=== PATIENT | female | born 1975 | race Caucasian/White ===

== ENCOUNTER 2023-12-29 10:39 | Outpatient (AMB) | payer BC, SELFPAY ==
--- NOTE | 2023-12-29 10:51 | MHC.PC.OV ---
Vital Signs 12/29/23 11:06 12/29/23 11:13 Height 5 ft 5.2 in Weight 160 lb 4 oz BMI 26.5 BP 144/90 H 148/84 H Blood Pressure Location Rt brachial Rt brachial Position Sitting Sitting Respiration 14 Pulse 67 Pulse Source Pulse Oximeter Pulse Oximetry (%) 97 Oxygen Delivery Method Room Air Intake Visit Reasons: Est. Care HTN Intake Note: New patient visit. 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 Required: No Allergies bioxin Allergy (Unknown, Uncoded 12/29/23 11:01) hives Medication List - Last Reconciled 12/29/23 by Maite Noriega MD albuterol sulfate 90 mcg/actuation (Ventolin HFA) 2 puffs inhalation Q6H PRN albuterol sulfate 2.5 mg inhalation Q6H amlodipine 10 mg PO DAILY atenolol 25 mg PO DAILY budesonide-formoterol 80-4.5 mcg/actuation (Symbicort) 2 puffs inhalation BID epinephrine (EpiPen) 0.3 mg IM Q4H PRN fluticasone propionate 50 mcg/actuation (Children's Flonase Allergy Relief) 1 spray intranasal BID ibuprofen 200 mg PO Q6H PRN linaclotide (Linzess) 145 mcg PO DAILY 90 days lisinopril 40 mg PO DAILY 90 days tirzepatide (Mounjaro) 10 mg subcut QWEEK zolpidem (Ambien) 10 mg PO BEDTIME 28 days Tobacco use date assessed: 12/29/23 Dental Screening Dental Screen Date: 12/29/23 Did you have a dental visit in the last 12 months?: Yes Did you have a dental problem in the last 6 months where you did not have access to dental care?: No Was dental information given to patient?: Patient has dentist HPI HPI Comments History of Present Illness Details The patient is a 48 year old female with a past medical history of hypertension, asthma, prediabetes, DJD, IBS, chronic insomnia presenting for follow up She has been having issues with recurrent ear infections for the past year. She recently was treated with a 7 day course of oral antibiotics from urgent care. Was feeling much better toward the end of the antibiotic course though symptoms did not completely cease now bilateral ear pain is recurring. Does endorse seasonal allergies. Only taking flonase at present. Obesity: doing well on mounjaro. Takes linzess along with medication-has h/o IBS. CV: On amlodipine, lisinopril, atenolol. 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 She has not tolerated diuretic s in the past Asthma: Stable Chronic insomnia: stable on zolpidem ROS see HPI PHYSICAL EXAM: GENERAL: Alert and oriented x 3. NAD EYES: EOMI. Anicteric. HENT: Moist mucous membranes. No scleral icterus. No cervical lymphadenopathy. Left ear with clear, scant middle ear effusion, right ear with moderate clear middle ear effusion and injection, mild bulging of the right TM LUNGS: Clear to auscultation bilaterally. CARDIOVASCULAR: Regular rate and rhythm. No murmur. No JVD. ABDOMEN: Soft, non-tender +bs EXTREMITIES: No edema. Non-tender. SKIN: No rashes or lesions. Warm. NEUROLOGIC: No focal neurological deficits. CN II-XII grossly intact PSYCHIATRIC: Cooperative. Appropriate mood and affect [facility] [place] Medical History (Updated 12/31/23 @ 09:14 by Maite Noriega MD) Von Willebrand disease Persistent insomnia Obesity, Class I, BMI 30-34.9 Migraine with aura Kidney stone IBS (irritable bowel syndrome) HTN (hypertension) Degenerative joint disease Asthma Allergy to honey bee venom Surgical History (Updated 12/29/23 @ 11:10 by Kristy Lozada CMA) History of nephrectomy Family History (Updated 12/29/23 @ 11:21 by Kristy Lozada CMA) Mother HTN (hypertension) Father Asthma Father HTN (hypertension) Sister HTN (hypertension) Thyroid disease Other Crohn disease Social History (Updated 12/29/23 @ 11:04 by Kristy Lozada CMA) Housing: House Patient Tobacco Use Status: Never used Tobacco e-Cigarette/Vaping Use: Never Used Second Hand Smoke Exposure: No service: No Current occupational status: employed 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 1. Little interest or pleasure in doing things: not at all 2. Feeling down, depressed, or hopeless: not at all 3. Trouble falling or staying asleep, or sleeping too much: not at all 4. Feeling tired or having little energy: not at all 5. Poor appetite or overeating: not at all 6. Feeling bad about yourself - or that you are a failure or have let yourself or your family down: not at all 7. Trouble concentrating on things, such as reading the newspaper or watching television: not at all 8. Moving or speaking so slowly that other people could have noticed. Or the opposite - being so fidgety or restless that you have been moving around a lot more than usual: not at all 9. Thoughts that you would be better off or of hurting yourself in some way: not at all Total score: 0 Depression Screening Interpretation: Negative (neg) Depression Screening Done: Yes 46459 - PHQ-9 Billing: Yes Source: Developed by Drs. Parth Devine, Fani Hassan, Orlin Verma and colleagues, with an educational gerardo from [employer]. Thrive Questionnaire Date Thrive assessed: 12/29/23 I am a: Patient What is your living situation today?: I have a steady place to live Within the past 12 months, did the food you bought not last and you didn't have the money to get more?: Never true Within the past 12 months, did you worry whether your food would run out before you got money to buy more?: Never true Do you have trouble paying for medicines?: No Do you have trouble getting transportation to medical appointments?: No Do you have trouble paying your heating and electricity bill?: No Do you have trouble taking care of your child, family member or friend?: No Do you have trouble with day-to-day activities such as bathing, preparing meals, shopping, managing finances, etc.?: No Are you currently unemployed and looking for a job?: No Are you interested in more education?: No Please select the resources that you would like help with: None Currently or been in a relationship where the following occur: no concerns reported THRIVE Score: 0 AUDIT C Alcohol Use Questionnaire (AUDIT-C) 1. How often do you have a drink containing alcohol?: Never 3. How often do you have six or more drinks on one occasion?: Never Total Score: 0 SHAWN-7 AMB Questionnaire SHAWN-7 Date SHAWN - 7 assessed: 12/29/23 Feeling nervous, anxious, or on edge: 0 = Not at all Not being able to stop or control worryin = Not at all Worrying too much about different things: 0 = Not at all Trouble relaxin = Not at all Being so restless that it is hard to sit still: 0 = Not at all Becoming easily annoyed or irritable: 0 = Not at all Feeling afraid as if something awful might happen: 0 = Not at all Total SHAWN-7 score (0-4 normal; 5-9 mild; 10-14 moderate; 15-21 severe): 0 Source: Developed by Drs. Parth Devine, Fani Hassan, Orlin Verma and colleagues, with an educational gerardo from [employer]. SHAWN-7 Assessment Billing SHAWN-7 Assessment Tool: SHAWN-7 Assessment 70560 ACT Questionnaire In the past 4 weeks, how much of the time did your asthma keep you from getting as much done at work, school or at home?: None of the time During the past 4 weeks, how often have you had shortness of breath?: Not at all During the past 4 weeks, how often did your asthma symptoms wake you up at night or earlier than usual in the morning?: Not at all During the past 4 weeks, how often have you had to use your rescue inhaler or nebulizer medication?: Not at all How would you rate your asthma control during the past 4 weeks?: Well controlled Score: 24 Physical exam (Primary Care) Vital Signs: Last Vital Signs Pulse 67 12/29/23 11:06 Resp 14 12/29/23 11:06 BP 148/84 H 12/29/23 11:13 Pulse Ox 97 12/29/23 11:06 Oxygen Delivery Method Room Air 12/29/23 11:06 BMI result Body Mass Index 26.5 Tobacco/Smoking Status: Tobacco use Status Tobacco use date assessed 12/29/23 12/29/23 11:21 Patient Tobacco Use Status Never used Tobacco 12/29/23 11:21 e-Cigarette/Vaping Use Never Used 12/29/23 11:21 PHQ-9: PHQ-9 Score PHQ-9: Total score 0 12/29/23 12:20 Depression Screening Interpretation: Negative (neg) Thrive Assessment: Date of Thrive Assessment Date Thrive assessed 12/29/23 12/29/23 12:20 Currently or been in a relationship where the following occur: no concerns reported Assessment and Plan Assessment & Plan (1) IBS (irritable bowel syndrome): Code(s): K58.9 - Irritable bowel syndrome without diarrhea Qualifiers: Irritable bowel syndrome type: unspecified Qualified Code(s): K58.9 - Irritable bowel syndrome without diarrhea Plan: stable (2) Asthma: Code(s): J45.909 - Unspecified asthma, uncomplicated Qualifiers: Asthma severity: moderate Asthma persistence: persistent Asthma complication type: uncomplicated Qualified Code(s): J45.40 - Moderate persistent asthma, uncomplicated (3) HTN (hypertension): Code(s): I10 - Essential (primary) hypertension Qualifiers: Hypertension type: primary hypertension Qualified Code(s): I10 - Essential (primary) hypertension Plan: controlled (4) History of recurrent ear infection: Code(s): Z86.69 - Personal history of other diseases of the nervous system and sense organs Plan: referral to ENT extend abx. afrin, prednisone preflight Orders: Referrals Ear/Nose/Throat Referral Z86.69 - Personal history of other diseases of the nervous system and sense organs Medications: New zolpidem May pay out of pocket-patient will run short on vacation 10 mg PO BEDTIME 5 tabs 0RF doxycycline hyclate 100 mg PO BID 14 days 28 caps 0RF azelastine administer into each nostril 1 spray intranasal BID 30 mL 3RF prednisone 40 mg (2 x 20 mg) PO DAILY 2 days 4 tabs 0RF Coding Level of Care Code Est Pt Level 5 (95641) Complex EM visit Add On G2211 Diagnoses Irritable bowel syndrome, unspecified type K58.9 Irritable bowel syndrome type: unspecified Moderate persistent asthma without complication J45.40 Asthma severity: moderate Asthma persistence: persistent Asthma complication type: uncomplicated Primary hypertension I10 Hypertension type: primary hypertension History of recurrent ear infection Z86.69 Additional Codes SHAWN-7 Assessment Billing - SHAWN-7 Assessment Tool: SHAWN-7 Assessment 95237 ([id number]) Time Spent (min) 47
[2023-12-29 11:06] VITALS: BP 144/90; PULSE 67; RESP 14; O2SAT 97; BMI 26.5
[2023-12-29 11:13] VITALS: BP 148/84
== END 2023-12-29 11:58 | disposition home or self-care (01) ==
PROVIDERS: PCP Internal Medicine; Visit Provider Internal Medicine
DX: K58.9 Irritable bowel syndrome, unspecified (principal); J45.40 Moderate persistent asthma, uncomplicated; I10 Essential (primary) hypertension; Z86.69 Personal history of other diseases of the nervous system and sense organs
CPT/HCPCS: 99215

== ENCOUNTER 2024-05-02 13:21 | Outpatient (AMB) | payer OTHER, SELFPAY ==
--- NOTE | 2024-05-02 13:30 | MHC.PC.OV ---
Vital Signs 05/02/24 13:36 Height 5 ft 5.2 in Weight 159 lb BMI 26.3 BP 140/84 H Blood Pressure Location Rt brachial Position Sitting Pulse 96 Pulse Source Pulse Oximeter Temp 98.8 F Temp Source Oral Pulse Oximetry (%) 99 Oxygen Delivery Method Room Air Intake Visit Reasons: Sinus infection Intake Note: Sinus pressure, dizzy, ears clogged, headache. Symptoms ongoing. [facility] to [facility] 3 weeks ago and symptoms came back. 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 She recently was treated with a 7 day course of oral antibiotics from urgent care. Was feeling much better toward the end of the antibiotic course though symptoms did not completely cease now bilateral ear pain is recurring. Does endorse seasonal allergies. Only taking flonase at present. She has appt pending appt. She has increased ear pain and sinus pressure for the last 3 weeks worsening over the past week. Feels febrile at night. Obesity: Was doing well on mounjaro-lost weight. Insurance stopped approving. Takes linzess along with medication-has h/o IBS. CV: On amlodipine, lisinopril, atenolol. 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 She has not tolerated diuretic s in the past Asthma: Stable Chronic insomnia: stable on zolpidem ROS see HPI PHYSICAL EXAM: GENERAL: Alert and oriented x 3. NAD EYES: EOMI. Anicteric. HENT: Moist mucous membranes. No scleral icterus. No cervical lymphadenopathy. Left ear with clear, scant middle ear effusion, right ear with moderate clear middle ear effusion and injection, mild bulging of the right TM LUNGS: Clear to auscultation bilaterally. CARDIOVASCULAR: Regular rate and rhythm. No murmur. No JVD. ABDOMEN: Soft, non-tender +bs EXTREMITIES: No edema. Non-tender. SKIN: No rashes or lesions. Warm. NEUROLOGIC: No focal neurological deficits. CN II-XII grossly intact PSYCHIATRIC: Cooperative. Appropriate mood and affect [facility] Medical History (Updated 01/26/24 @ 14:25 by Maite Noriega MD) Von Willebrand disease Persistent insomnia Obesity, Class I, BMI 30-34.9 Migraine with aura Kidney stone IBS (irritable bowel syndrome) HTN (hypertension) Degenerative joint disease Asthma Allergy to honey bee venom Surgical History (Updated 12/29/23 @ 11:10 by Kristy Lozada CMA) History of nephrectomy Family History (Updated 12/29/23 @ 11:21 by Kristy Lozada CMA) Mother HTN (hypertension) Father Asthma Father HTN (hypertension) Sister HTN (hypertension) Thyroid disease Other Crohn disease Social History (Updated 12/29/23 @ 11:04 by Kristy Lozada CMA) Housing: House Patient Tobacco Use Status: Never used Tobacco e-Cigarette/Vaping Use: Never Used Second Hand Smoke Exposure: No service: No Current occupational status: employed 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 1. Little interest or pleasure in doing things: not at all 2. Feeling down, depressed, or hopeless: not at all 3. Trouble falling or staying asleep, or sleeping too much: not at all 4. Feeling tired or having little energy: not at all 5. Poor appetite or overeating: not at all 6. Feeling bad about yourself - or that you are a failure or have let yourself or your family down: not at all 7. Trouble concentrating on things, such as reading the newspaper or watching television: not at all 8. Moving or speaking so slowly that other people could have noticed. Or the opposite - being so fidgety or restless that you have been moving around a lot more than usual: not at all 9. Thoughts that you would be better off or of hurting yourself in some way: not at all Total score: 0 Source: Developed by Drs. Parth Devine, Fani Hassan, Orlin Verma and colleagues, with an educational gerardo from [employer]. Thrive Questionnaire Date Thrive assessed: 04/29/24 I am a: Patient What is your living situation today?: I have a steady place to live Within the past 12 months, did the food you bought not last and you didn't have the money to get more?: Never true Within the past 12 months, did you worry whether your food would run out before you got money to buy more?: Never true Do you have trouble paying for medicines?: No Do you have trouble getting transportation to medical appointments?: No Do you have trouble paying your heating and electricity bill?: No Do you have trouble taking care of your child, family member or friend?: No Do you have trouble with day-to-day activities such as bathing, preparing meals, shopping, managing finances, etc.?: No Are you currently unemployed and looking for a job?: No Are you interested in more education?: No Please select the resources that you would like help with: None Currently or been in a relationship where the following occur: No concerns reported THRIVE Score: 0 AUDIT C Alcohol Use Questionnaire (AUDIT-C) 1. How often do you have a drink containing alcohol?: Never 3. How often do you have six or more drinks on one occasion?: Never Total Score: 0 SHAWN-7 AMB Questionnaire SHAWN-7 Date SHAWN - 7 assessed: 12/29/23 Feeling nervous, anxious, or on edge: 0 = Not at all Not being able to stop or control worryin = Not at all Worrying too much about different things: 0 = Not at all Trouble relaxin = Not at all Being so restless that it is hard to sit still: 0 = Not at all Becoming easily annoyed or irritable: 0 = Not at all Feeling afraid as if something awful might happen: 0 = Not at all Total SHAWN-7 score (0-4 normal; 5-9 mild; 10-14 moderate; 15-21 severe): 0 Source: Developed by Drs. Parth Devine, Fani Hassan, Orlin Verma and colleagues, with an educational gerardo from [employer]. Physical exam (Primary Care) Vital Signs: Last Vital Signs Temp 98.8 F 05/02/24 13:36 Pulse 96 05/02/24 13:36 BP 140/84 H 05/02/24 13:36 Pulse Ox 99 05/02/24 13:36 Oxygen Delivery Method Room Air 05/02/24 13:36 BMI result Body Mass Index 26.3 Tobacco/Smoking Status: Tobacco use Status Tobacco use date assessed 12/29/23 05/02/24 13:35 Patient Tobacco Use Status Never used Tobacco 05/02/24 13:35 e-Cigarette/Vaping Use Never Used 05/02/24 13:35 PHQ-9: PHQ-9 Score PHQ-9: Total score 0 05/11/24 11:10 Thrive Assessment: Date of Thrive Assessment Date Thrive assessed 04/29/24 05/02/24 13:35 Currently or been in a relationship where the following occur: No concerns reported Coding Level of Care Code Est Pt Level 4 (27663) Diagnoses History of recurrent ear infection Z86.69 Primary hypertension I10 Hypertension type: primary hypertension Assessment & Plan Assessment & Plan (1) History of recurrent ear infection: Code(s): Z86.69 - Personal history of other diseases of the nervous system and sense organs Category: Medical Plan: doxycycline sent (2) HTN (hypertension): Code(s): I10 - Essential (primary) hypertension Category: Medical Qualifiers: Hypertension type: primary hypertension Qualified Code(s): I10 - Essential (primary) hypertension Plan: adequately controlled. GLP resent Medications: New semaglutide can sub alternate concentration for equivalent dose per week 1 mg (0.75 mL) subcut QWEEK 9 mL 3RF pen needle, diabetic (Pen Needle) weekly 50 ea 3RF Refilled doxycycline hyclate 100 mg PO BID 28 caps 0RF 14 days zolpidem 10 mg PO BEDTIME 60 tabs 0RF G47.00 - Insomnia, unspecified
[2024-05-02 13:36] VITALS: BP 140/84; PULSE 96; TEMP 37.1; O2SAT 99; BMI 26.3
== END 2024-05-02 13:59 | disposition home or self-care (01) ==
LOC: HO.HMCFM 13:22
PROVIDERS: PCP Internal Medicine; Visit Provider Internal Medicine
DX: Z86.69 Personal history of other diseases of the nervous system and sense organs (principal); I10 Essential (primary) hypertension

== ENCOUNTER → 2024-05-02 13:21 | Outpatient (BNVA) | payer OTHER, SELFPAY | PROVIDERS: PCP Internal Medicine; Visit Provider Internal Medicine ==

== ENCOUNTER 2024-06-24 15:04 | Outpatient (AMB) | payer OTHER, SELFPAY ==
--- NOTE | 2024-06-24 15:15 | MHC.PC.OV ---
Vital Signs 06/24/24 15:20 Height 5 ft 5.2 in Weight 158 lb 6 oz BMI 26.2 BP 138/86 Blood Pressure Location Rt brachial Position Sitting Pulse 69 Pulse Source Pulse Oximeter Pulse Oximetry (%) 99 Oxygen Delivery Method Room Air Intake Visit Reasons: PE rescheduled Intake Note: Physical [employer] Required: No Allergies bioxin Allergy (Unknown, Uncoded 06/24/24 15:18) hives Tobacco use date assessed: 12/29/23 Dental Screening Dental Screen Date: 12/29/23 HPI HPI Comments History of Present Illness Details The patient is a 48 year old female with a past medical history of hypertension, asthma, prediabetes, DJD, IBS, chronic insomnia presenting for physical exam She has been having issues with recurrent ear infections for the past year. She recently was treated with a 7 day course of oral antibiotics from urgent care. Was feeling much better toward the end of the antibiotic course though symptoms did not completely cease now bilateral ear pain is recurring. Does endorse seasonal allergies. Only taking flonase at present. She has appt pending appt. She has increased ear pain and sinus pressure for the last 3 weeks worsening over the past week. Feels febrile at night. Saw Dr Leyva but would like second opinion Obesity: Was doing well on mounjaro-lost weight. Insurance stopped approving. Takes linzess along with medication-has h/o IBS. CV: On amlodipine, lisinopril, atenolol. 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 She has not tolerated diuretic s in the past Asthma: Stable Chronic insomnia: stable on zolpidem Mammo: UTD Colon cancer screening: Cologuard ordered ROS see HPI PHYSICAL EXAM: GENERAL: Alert and oriented x 3. NAD EYES: EOMI. Anicteric. HENT: Moist mucous membranes. No scleral icterus. No cervical lymphadenopathy. LUNGS: Clear to auscultation bilaterally. CARDIOVASCULAR: Regular rate and rhythm. No murmur. No JVD. ABDOMEN: Soft, non-tender +bs EXTREMITIES: No edema. Non-tender. SKIN: No rashes or lesions. Warm. NEUROLOGIC: No focal neurological deficits. CN II-XII grossly intact PSYCHIATRIC: Cooperative. Appropriate mood and affect [facility], [facility] Medical History (Updated 06/30/24 @ 15:37 by Maite Noriega MD) Von Willebrand disease Persistent insomnia Obesity, Class I, BMI 30-34.9 Migraine with aura Kidney stone IBS (irritable bowel syndrome) HTN (hypertension) Degenerative joint disease Asthma Allergy to honey bee venom Surgical History (Updated 12/29/23 @ 11:10 by Kristy Lozada CMA) History of nephrectomy Family History (Updated 12/29/23 @ 11:21 by Kristy Lozada CMA) Mother HTN (hypertension) Father Asthma Father HTN (hypertension) Sister HTN (hypertension) Thyroid disease Other Crohn disease Social History (Updated 12/29/23 @ 11:04 by Kristy Lozada CMA) Housing: House Patient Tobacco Use Status: Never used Tobacco e-Cigarette/Vaping Use: Never Used Second Hand Smoke Exposure: No service: No Current occupational status: employed 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 occupational exposures/hazards: 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 kids) Cognitive needs: No Hearing needs: No Vision needs: Yes (glasses) Questionnaire Thrive Questionnaire Date Thrive assessed: 04/29/24 I am a: Patient What is your living situation today?: I have a steady place to live Within the past 12 months, did the food you bought not last and you didn't have the money to get more?: Never true Within the past 12 months, did you worry whether your food would run out before you got money to buy more?: Never true Do you have trouble paying for medicines?: No Do you have trouble getting transportation to medical appointments?: No Do you have trouble paying your heating and electricity bill?: No Do you have trouble taking care of your child, family member or friend?: No Do you have trouble with day-to-day activities such as bathing, preparing meals, shopping, managing finances, etc.?: No Are you currently unemployed and looking for a job?: No Are you interested in more education?: No Please select the resources that you would like help with: None Currently or been in a relationship where the following occur: No concerns reported THRIVE Score: 0 SHAWN-7 AMB Questionnaire SHAWN-7 Date SHAWN - 7 assessed: 12/29/23 Source: Developed by Drs. Parth Devine, Fani Hassan, Orlin Verma and colleagues, with an educational gerardo from [employer]. Physical exam (Primary Care) Vital Signs: Last Vital Signs Pulse 69 06/24/24 15:20 BP 138/86 12/20/24 15:20 Pulse Ox 99 06/24/24 15:20 Oxygen Delivery Method Room Air 06/24/24 15:20 BMI result Body Mass Index 26.2 Tobacco/Smoking Status: Tobacco use Status Tobacco use date assessed 12/29/23 06/24/24 15:15 Patient Tobacco Use Status Never used Tobacco 06/24/24 15:15 e-Cigarette/Vaping Use Never Used 06/24/24 15:15 Thrive Assessment: Date of Thrive Assessment Date Thrive assessed 04/29/24 06/24/24 15:15 Currently or been in a relationship where the following occur: No concerns reported Coding Level of Care Code Est Pt Prev Care 40-64y(23887) Diagnoses Physical exam Z00.00 Primary hypertension I10 Hypertension type: primary hypertension Assessment & Plan Assessment & Plan (1) Physical exam: Code(s): Z00.00 - Encounter for general adult medical examination without abnormal findings Category: Medical Plan: preventive measures for age reviewed cologuard ordered (2) HTN (hypertension): Code(s): I10 - Essential (primary) hypertension Category: Medical Qualifiers: Hypertension type: primary hypertension Qualified Code(s): I10 - Essential (primary) hypertension Plan: stable on current medications Orders: Orders Comprehensive Met. Panel 06/24/24 E66.9 - Obesity, unspecified, G47.00 - Insomnia, unspecified, I10 - Essential (primary) hypertension, J45.40 - Moderate persistent asthma, uncomplicated Hemoglobin A1c 06/24/24 E66.9 - Obesity, unspecified, G47.00 - Insomnia, unspecified, I10 - Essential (primary) hypertension, J45.40 - Moderate persistent asthma, uncomplicated Complete Blood Count Auto Diff 06/24/24 E66.9 - Obesity, unspecified, G47.00 - Insomnia, unspecified, I10 - Essential (primary) hypertension, J45.40 - Moderate persistent asthma, uncomplicated TSH reflex Free T4 06/24/24 E66.9 - Obesity, unspecified, G47.00 - Insomnia, unspecified, I10 - Essential (primary) hypertension, J45.40 - Moderate persistent asthma, uncomplicated Lipid Panel 06/24/24 E66.9 - Obesity, unspecified, G47.00 - Insomnia, unspecified, I10 - Essential (primary) hypertension, J45.40 - Moderate persistent asthma, uncomplicated Referrals Ear/Nose/Throat Referral Z86.69 - Personal history of other diseases of the nervous system and sense organs Cologuard Test Z12.11 - Encounter for screening for malignant neoplasm of colon, Z12.12 - Encounter for screening for malignant neoplasm of rectum Medications: New Zepbound (tirzepatide (weight loss)) for 4 weeks 2.5 mg (0.5 mL) subcut QWEEK 2 mL 0RF NS E66.9 - Obesity, unspecified Refilled zolpidem 10 mg PO BEDTIME 60 tabs 0RF G47.00 - Insomnia, unspecified
[2024-06-24 15:20] VITALS: BP 138/86; PULSE 69; O2SAT 99; BMI 26.2
== END 2024-06-24 16:03 | disposition home or self-care (01) ==
PROVIDERS: PCP Internal Medicine; Visit Provider Internal Medicine
DX: Z00.00 Encounter for general adult medical examination without abnormal findings (principal); I10 Essential (primary) hypertension

== ENCOUNTER → 2024-06-24 15:04 | Outpatient (BNVA) | payer OTHER, SELFPAY | PROVIDERS: PCP Internal Medicine; Visit Provider Internal Medicine ==

== ENCOUNTER 2024-06-24 15:24 | Outpatient (REF) | payer OTHER, SELFPAY ==
[2024-06-24 17:29] LABS: MANUAL DIFF FLAG NO
[2024-06-24 17:35] LABS: Basophils Percent Auto 0.9 % (0-2); Eosinophils Absolute Auto 0.2 X10*3/uL (0.0-0.4); Eosinophils Percent Auto 4.9 % (0-4); Hemoglobin 13.2 g/dl (12.0-16.0); Imm Gran Abs Auto 0.01 X10*3/uL (0.00-0.03); Imm Gran Pct Auto 0.2 % (0.0-0.4); Lymphocytes Absolute Auto 1.3 X10*3/uL (1.2-4.9); Lymphocytes Percent Auto 30.5 % (20-40); Mean Corpuscular Hemoglobin 31.7 pg (27.0-33.0); Mean Corpuscular Volume 95.9 fL (80.0-98.0); Mean Platelet Volume 9.8 fL (9.4-12.3); Monocytes Absolute Auto 0.3 X10*3/uL (0.1-1.2); Monocytes Percent Auto 7.9 % (2-11); Neutrophils Absolute Auto 2.4 x10*3/uL (2.0-8.3); Neutrophils Percent Auto 55.6 % (45-73); Platelet Count 294 X10*3/uL (160-400); Red Blood Count 4.17 X10*6/uL (4.20-5.50); Red Cell Distribution Width 11.9 % (11.0-16.0); White Blood Count 4.3 X10*3/uL (4.8-10.8)
[2024-06-24 17:47] LABS: Estimated Average Glucose 103 mg/dL; Hemoglobin A1C 114.6974 umol/L; Hemoglobin A1c % 5.2 % (<6.0); Total Hemoglobin (HGBA1C) 3407.1582 umol/L
[2024-06-24 17:58] LABS: Alanine Aminotransferase 25 U/L (0-31); Albumin Level 4.2 g/dL (3.5-5.0); Alkaline Phosphatase 53 U/L (39-117); Anion Gap 9 (12-20); Aspartate Amino Transferase 27 U/L (5-31); Bilirubin Total 0.2 mg/dL (0.0-1.0); Blood Urea Nitrogen 13 mg/dL (9-16); Calcium 9.2 mg/dL (8.4-10.2); Carbon Dioxide 28 mmol/L (22-29); Chloride 111 mmol/L (96-108); Cholesterol 236 mg/dL (<200); Estimated Glomerular Filt Rate > 60; Glucose Random 86 mg/dL (60-115); HDL Cholesterol 51 mg/dL (>40); LDL Cholesterol Calculated 147 mg/dL (<100); Potassium 3.9 mmol/L (3.3-5.1); Sodium 144 mmol/L (135-145); Total Protein 7.5 g/dL (6.5-8.0); Triglycerides 194 mg/dL (<150)
[2024-06-24 18:42] LABS: TSH reflex Free T4 2.12 uIU/mL (0.32-4.0)
== END 2024-06-24 15:25 | disposition home or self-care (01) ==
LOC: HO.WFDLDS 15:24
PROVIDERS: Visit Provider Internal Medicine
DX: I10 Essential (primary) hypertension (principal); J45.40 Moderate persistent asthma, uncomplicated; G47.00 Insomnia, unspecified; E66.9 Obesity, unspecified; Z13.1 Encounter for screening for diabetes mellitus
CPT/HCPCS: 36415; 80053; 80061; 83036; 84443; 85025

== ENCOUNTER 2024-12-26 13:33 | Outpatient (AMB) | payer OTHER, SELFPAY ==
--- NOTE | 2024-12-26 13:44 | MHC.PC.OV ---
Vital Signs 12/26/24 13:48 12/26/24 13:55 Height 5 ft 5.2 in Weight 172 lb BMI 28.4 BP 146/86 H 144/86 H Blood Pressure Location Lt brachial Lt brachial Position Sitting Sitting Respiration 85 H Pulse 75 Pulse Source Pulse Oximeter Temp 98.5 F Pulse Oximetry (%) 97 Oxygen Delivery Method Room Air Intake Visit Reasons: follow up Intake Note: Follow up. Right knee pain. Has contradiction to phentermine: headache, stomach ache, and insomnia. Allergies phentermine Allergy (Intermediate, Verified 12/26/24 13:58) Headache bioxin Allergy (Unknown, Uncoded 06/24/24 15:18) hives Tobacco use date assessed: 12/26/24 Dental Screening Dental Screen Date: 12/26/24 Did you have a dental visit in the last 12 months?: Yes Did you have a dental problem in the last 6 months where you did not have access to dental care?: No Was dental information given to patient?: Patient has dentist HPI HPI Comments History of Present Illness Details The patient is a 48 year old female with a past medical history of hypertension, asthma, prediabetes, DJD, IBS, chronic insomnia presenting for physical exam Obesity: Was doing well on mounjaro-lost weight. Insurance stopped approving. GI: IBS. On linzess CV: On amlodipine, lisinopril, atenolol. 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 She has not tolerated diuretics in the past. Blood pressure at home at goal 120s-130s. Has checked monitor at office. Asthma: Stable Chronic insomnia: stable on zolpidem Recurrent ear infections-quiet. Saw Dr Leyva Increasing right knee pain. Fell on the knee a few years ago when she hurt her right foot. It used to intermittently bother her, now painful daily. Mildly swelling. Pain along the lateral right aspect. Mammo: UTD Colon cancer screening: Cologuard at her home ROS see HPI PHYSICAL EXAM: GENERAL: Alert and oriented x 3. NAD EYES: EOMI. Anicteric. HENT: Moist mucous membranes. No scleral icterus. No cervical lymphadenopathy. LUNGS: Clear to auscultation bilaterally. CARDIOVASCULAR: Regular rate and rhythm. No murmur. No JVD. ABDOMEN: Soft, non-tender +bs EXTREMITIES: No edema. Non-tender. SKIN: No rashes or lesions. Warm. NEUROLOGIC: No focal neurological deficits. CN II-XII grossly intact PSYCHIATRIC: Cooperative. Appropriate mood and affect [facility] Medical History Von Willebrand disease Persistent insomnia Obesity, Class I, BMI 30-34.9 Migraine with aura Kidney stone IBS (irritable bowel syndrome) HTN (hypertension) Degenerative joint disease Asthma Allergy to honey bee venom Surgical History History of nephrectomy Family History Mother HTN (hypertension) Father Asthma Father HTN (hypertension) Sister HTN (hypertension) Thyroid disease Other Crohn disease Social History Housing: House Patient Tobacco Use Status: Never used Tobacco e-Cigarette/Vaping Use: Never Used Second Hand Smoke Exposure: No service: No Current occupational status: employed 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 1. Little interest or pleasure in doing things: not at all 2. Feeling down, depressed, or hopeless: not at all 3. Trouble falling or staying asleep, or sleeping too much: not at all 4. Feeling tired or having little energy: not at all 5. Poor appetite or overeating: not at all 6. Feeling bad about yourself - or that you are a failure or have let yourself or your family down: not at all 7. Trouble concentrating on things, such as reading the newspaper or watching television: not at all 8. Moving or speaking so slowly that other people could have noticed. Or the opposite - being so fidgety or restless that you have been moving around a lot more than usual: not at all 9. Thoughts that you would be better off or of hurting yourself in some way: not at all Total score: 0 Depression Screening Interpretation: Negative Depression Screening Done: Yes 88371 - PHQ-9 Billing: Yes Source: Developed by Drs. Parth Devine, Orlin Fernandez and colleagues, with an educational gerardo from [employer]. Thrive Questionnaire Date Thrive assessed: 12/19/24 I am a: Patient What is your living situation today?: I have a steady place to live Within the past 12 months, did the food you bought not last and you didn't have the money to get more?: Never true Within the past 12 months, did you worry whether your food would run out before you got money to buy more?: Never true Do you have trouble paying for medicines?: No Do you have trouble getting transportation to medical appointments?: No Do you have trouble paying your heating and electricity bill?: No Do you have trouble taking care of your child, family member or friend?: No Do you have trouble with day-to-day activities such as bathing, preparing meals, shopping, managing finances, etc.?: No Are you currently unemployed and looking for a job?: No Are you interested in more education?: No Please select the resources that you would like help with: None Currently or been in a relationship where the following occur: No concerns reported THRIVE Score: 0 AUDIT C Alcohol Use Questionnaire (AUDIT-C) 1. How often do you have a drink containing alcohol?: Never 3. How often do you have six or more drinks on one occasion?: Never Total Score: 0 SHAWN-7 AMB Questionnaire SHAWN-7 Date SHAWN - 7 assessed: 12/29/23 Feeling nervous, anxious, or on edge: 0 = Not at all Not being able to stop or control worryin = Not at all Worrying too much about different things: 0 = Not at all Trouble relaxin = Not at all Being so restless that it is hard to sit still: 0 = Not at all Becoming easily annoyed or irritable: 0 = Not at all Feeling afraid as if something awful might happen: 0 = Not at all Total SHAWN-7 score (0-4 normal; 5-9 mild; 10-14 moderate; 15-21 severe): 0 Source: Developed by Drs. Parth Devine, Orlin Fernandez and colleagues, with an educational gerardo from [employer] Physical exam (Primary Care) Vital Signs: Last Vital Signs Temp 98.5 F 12/26/24 13:48 Pulse 75 12/26/24 13:48 Resp 85 H 12/26/24 13:48 BP 144/86 H 12/26/24 13:55 Pulse Ox 97 12/26/24 13:48 Oxygen Delivery Method Room Air 12/26/24 13:48 BMI result Body Mass Index 28.4 Tobacco/Smoking Status: Tobacco use Status Tobacco use date assessed 12/26/24 12/26/24 13:51 Patient Tobacco Use Status Never used Tobacco 12/26/24 13:51 e-Cigarette/Vaping Use Never Used 12/26/24 13:51 PHQ-9: PHQ-9 Score PHQ-9: Total score 0 12/26/24 13:55 Depression Screening Interpretation: Negative Thrive Assessment: Date of Thrive Assessment Date Thrive assessed 12/19/24 12/26/24 13:51 Currently or been in a relationship where the following occur: No concerns reported Coding Level of Care Code Est Pt Level 4 (17841) Complex EM visit Add On G2211 Diagnoses Chronic pain of right knee M25.561; G89.29 Chronicity: chronic Obesity, Class I, BMI 30-34.9 E66.9 Primary hypertension I10 Hypertension type: primary hypertension Moderate persistent asthma without complication J45.40 Asthma severity: moderate Asthma persistence: persistent Asthma complication type: uncomplicated Additional Codes PHQ-9 - 45214 - PHQ-9 Billing: Yes ([id number]) Assessment & Plan Assessment & Plan (1) Knee pain, right: Code(s): M25.561 - Pain in right knee Category: Medical Qualifiers: Chronicity: chronic Qualified Code(s): M25.561 - Pain in right knee; G89.29 - Other chronic pain (2) Obesity, Class I, BMI 30-34.9: Code(s): E66.9 - Obesity, unspecified Category: Medical Plan: Now BMI in overweight Has gained weight recently despite dietary modification Currently right knee is stopping her from exercising (3) HTN (hypertension): Code(s): I10 - Essential (primary) hypertension Category: Medical Qualifiers: Hypertension type: primary hypertension Qualified Code(s): I10 - Essential (primary) hypertension (4) Asthma: Code(s): J45.909 - Unspecified asthma, uncomplicated Category: Medical Qualifiers: Asthma severity: moderate Asthma persistence: persistent Asthma complication type: uncomplicated Qualified Code(s): J45.40 - Moderate persistent asthma, uncomplicated Plan Hypertension-well controlled on current medications right knee pain-referral ortho. xray ordered. Prednisone x 5 days. ice/heat, gentle streching. check lyme Orders: Orders Lipid Panel 12/26/24 D72.819 - Decreased white blood cell count, unspecified, E66.9 - Obesity, unspecified, I10 - Essential (primary) hypertension, R73.09 - Other abnormal glucose Complete Blood Count Auto Diff 12/26/24 D72.819 - Decreased white blood cell count, unspecified, E66.9 - Obesity, unspecified, I10 - Essential (primary) hypertension, R73.09 - Other abnormal glucose XR knee RT 3V 12/26/24 M25.561 - Pain in right knee Lyme IgG/IgM w/reflex to WB 12/26/24 M25.561 - Pain in right knee Comprehensive Met. Panel 12/26/24 D72.819 - Decreased white blood cell count, unspecified, E66.9 - Obesity, unspecified, I10 - Essential (primary) hypertension, R73.09 - Other abnormal glucose Hemoglobin A1c 12/26/24 D72.819 - Decreased white blood cell count, unspecified, E66.9 - Obesity, unspecified, I10 - Essential (primary) hypertension, R73.09 - Other abnormal glucose Referrals Orthopedics Referral M25.561 - Pain in right knee Medications: New prednisone 40 mg (2 x 20 mg) PO DAILY 10 tabs 0RF 5 days Refilled zolpidem 10 mg PO BEDTIME 60 tabs 3RF G47.00 - Insomnia, unspecified atenolol 25 mg PO DAILY 90 tabs 3RF
[2024-12-26 13:48] VITALS: BP 146/86; PULSE 75; RESP 85; TEMP 36.9; O2SAT 97; BMI 28.4
[2024-12-26 13:55] VITALS: BP 144/86
--- OUTSIDE RECORDS SUMMARY | 2024-12-26 14:59 | XMS_ITS | Clinical Summary ---
Author Organization [facility] Address [address] [place] [address] Care Team Providers Care Architectural Examiner Name Role Phone Henrietta Gilliland MD Primary Care Provider [phone] Allergies Active Allergy Reactions Criticality Noted Date Comments Amoxicillin 09/05/2019 Bee Sting 09/05/2019 Clarithromycin 09/05/2019 Dairy 09/05/2019 Hydrochlorothiazide 09/05/2019 Metoprolol 09/05/2019 Trichophyton 09/05/2019 Ragweed 09/05/2019 Medications Medication Sig Dispensed Refills Start Date End Date Status Fluticasone-Salmeterol (ADVAIR DISKUS IN) Inhale into the lungs. 0 Active zolpidem (AMBIEN) 10 MG tablet Take 10 mg by mouth every night at bedtime as needed for sleep. 0 Active amLODIPine (NORVASC) tablet 10 mg Take 10 mg by mouth daily. 0 Active lisinopril (PRINIVIL,ZESTRIL) tablet 40 mg Take 40 mg by mouth daily. 0 Active fluticasone (FLONASE) 50 MCG/ACT nasal spray spray/apply 1 spray in each nostril daily. 0 Active Glucosamine-Chondroiti n (GLUCOSAMINE CHONDR COMPLEX PO) Take by mouth. 0 Active Multiple Vitamins-Minerals (MULTIVITAMIN PO) Take by mouth. 0 Act juan Active Problems No known active problems Social History Tobacco Use Types Packs/Day Years Used Date Smoking Tobacco: Never Smokeless Tobacco: Never Alcohol Use Standard Drinks/Week Comments Yes 0 (1 standard drink = 0.6 oz pur e alcohol) ocassionally Sex and Gender Information Value Date Recorded Sex Assigned at Not on file Gender Identity Not on file Sexual Orientation Not on file Last Filed Vital Signs Vital Sign Reading Time Taken Comments Blood Pressure 172/84 09/06/2019 3:42 PM EST Pulse 108 09/06/2019 3:42 PM EST Temperature 36.9 C (98.4 F) 09/06/2019 3:42 PM EST Respiratory Rate - - Oxygen Saturation - - Inhaled Oxygen Concentration - - Weight 93.4 kg (206 lb) 09/06/2019 3:42 PM EST Height 172.7 cm (5' 8 ) 09/06/2019 3:42 PM EST Body Mass Index 31.32 09/06/2019 3:42 PM EST Plan of Treatment Health Maintenance Due Date Last Done Comments Hepatitis B Vaccines (1 of 3 - 3-dose series) 1973 Hepatitis C Screening 1973 COVID-19 Vaccine (#1) 01/27/1974 Depression Screening 1985 Preventative Health Evaluation 1991 DTap / Tdap / Td (1 - Tdap) 1992 Cervical Cancer Screening (P ap Smear) 1994 Colon Cancer Screening (Colonoscopy) 2018 Breast Cancer Screening (Mammogram) 2023 Shingrix-Zoster Vaccine (1 of 2) 2023 Influenza Vaccine (Season Ended) 2025 Pneumococcal Vaccine Aged Out No long er eligible based on patient's age to complete this topic RSV Ped < 20 months Aged Out No longe r eligible based on patient's age to complete this topic Care Teams Architectural Examiner Relationship Specialty Start Date End Date Henrietta Gilliland MD [address] [place] [address] [place] [phone] PCP - General Family Medicine 08/10/19
== END 2024-12-26 14:09 | disposition home or self-care (01) ==
LOC: HO.HMCFM 13:34
PROVIDERS: PCP Internal Medicine; Visit Provider Internal Medicine
DX: M25.561 Pain in right knee (principal); G89.29 Other chronic pain; E66.9 Obesity, unspecified; Z68.28 Body mass index [BMI] 28.0-28.9, adult; I10 Essential (primary) hypertension; J45.40 Moderate persistent asthma, uncomplicated

== ENCOUNTER → 2024-12-26 13:33 | Outpatient (BNVA) | payer OTHER, SELFPAY | PROVIDERS: PCP Internal Medicine; Visit Provider Internal Medicine | DX: M25.561 Pain in right knee (principal); G89.29 Other chronic pain; E66.9 Obesity, unspecified; I10 Essential (primary) hypertension; J45.40 Moderate persistent asthma, uncomplicated | CPT/HCPCS: 96127 ==

== ENCOUNTER 2024-12-26 14:24 | Outpatient (REF) | payer OTHER, SELFPAY ==
[2024-12-26 17:30] LABS: MANUAL DIFF FLAG NO
[2024-12-26 17:35] LABS: Basophils Percent Auto 0.4 % (0-2); Eosinophils Absolute Auto 0.2 X10*3/uL (0.0-0.4); Eosinophils Percent Auto 3.2 % (0-4); Hematocrit 40.2 % (37.0-47.0); Hemoglobin 13.3 g/dl (12.0-16.0); Imm Gran Abs Auto 0.01 X10*3/uL (0.00-0.03); Imm Gran Pct Auto 0.2 % (0.0-0.4); Lymphocytes Absolute Auto 1.7 X10*3/uL (1.2-4.9); Lymphocytes Percent Auto 35.7 % (20-40); Mean Corpuscular HGB Conc 33.1 g/dl (31.0-35.0); Mean Corpuscular Hemoglobin 31.3 pg (27.0-33.0); Mean Corpuscular Volume 94.6 fL (80.0-98.0); Mean Platelet Volume 9.9 fL (9.4-12.3); Monocytes Absolute Auto 0.4 X10*3/uL (0.1-1.2); Neutrophils Absolute Auto 2.4 x10*3/uL (2.0-8.3); Neutrophils Percent Auto 52.5 % (45-73); Platelet Count 289 X10*3/uL (160-400); Red Blood Count 4.25 X10*6/uL (4.20-5.50); Red Cell Distribution Width 12.1 % (11.0-16.0); White Blood Count 4.7 X10*3/uL (4.8-10.8)
[2024-12-26 17:46] LABS: Alanine Aminotransferase 23 U/L (0-31); Albumin Level 4.5 g/dL (3.5-5.0); Alkaline Phosphatase 47 U/L (39-117); Anion Gap 13 (12-20); Aspartate Amino Transferase 28 U/L (5-31); Bilirubin Total 0.3 mg/dL (0.0-1.0); Blood Urea Nitrogen 21 mg/dL (9-16); Calcium 9.7 mg/dL (8.4-10.2); Carbon Dioxide 25 mmol/L (22-29); Chloride 108 mmol/L (96-108); Cholesterol 251 mg/dL (<200); Estimated Glomerular Filt Rate > 60; Glucose Random 96 mg/dL (60-115); HDL Cholesterol 51 mg/dL (>40); LDL Cholesterol Calculated 154 mg/dL (<100); Potassium 3.8 mmol/L (3.3-5.1); Sodium 142 mmol/L (135-145); Total Protein 7.4 g/dL (6.5-8.0); Triglycerides 230 mg/dL (<150)
[2024-12-27 07:31] LABS: Estimated Average Glucose 105 mg/dL; Hemoglobin A1c % 5.3 % (<6.0); Total Hemoglobin (HGBA1C) 3466.4692 umol/L
[2024-12-27 09:49] LABS: Lyme Abs Screen <0.90 index
== END 2024-12-26 14:25 | disposition home or self-care (01) ==
LOC: HO.WFDLDS 14:24
PROVIDERS: Visit Provider Internal Medicine
DX: E66.811 Obesity, class 1 (principal); E66.9 Obesity, unspecified; I10 Essential (primary) hypertension; R73.09 Other abnormal glucose; D72.819 Decreased white blood cell count, unspecified; M25.561 Pain in right knee
CPT/HCPCS: 36415; 80053; 80061; 83036; 85025; 86617; 86618